=== PATIENT | male | born 1950 | race African-American/Black ===

== ENCOUNTER 2016-08-28 13:29 | Emergency (ER) | payer OTHER | END 2016-08-28 13:41 | disposition home or self-care (01) | LOC: ER 13:29 | DX: G43.909 Migraine, unspecified, not intractable, without status migrainosus (principal); F17.200 Nicotine dependence, unspecified, uncomplicated; I10 Essential (primary) hypertension | CPT/HCPCS: 93005; 96372; 99284; A9270-GY; J1885 ==

== ENCOUNTER 2016-09-02 06:44 | Emergency (ER) | payer OTHER | END 2016-09-02 07:00 | disposition home or self-care (01) | LOC: ER 06:44 | DX: I10 Essential (primary) hypertension (principal); R51 Headache | CPT/HCPCS: 99283; A9270-GY; J1885; J2765 ==